=== PATIENT | male | born 1945 | race Caucasian/White ===

== ENCOUNTER 2017-09-30 11:50 | Outpatient (CLI) | payer BC ==
[2016-04-03 03:22] VITALS: O2SAT 93
== END 2017-09-30 11:51 | disposition home or self-care (01) ==
LOC: CONVCARE 11:50
PROVIDERS: ATTEND Orthopaedic Surgery
DX: M17.11 Unilateral primary osteoarthritis, right knee (principal)
CPT/HCPCS: 73564

== ENCOUNTER 2017-10-07 15:05 | Outpatient (CLI) | payer BC ==
[2016-04-03 03:22] VITALS: O2SAT 93
== END 2017-10-07 15:06 | disposition home or self-care (01) ==
LOC: CONVCARE 15:05
PROVIDERS: ATTEND Orthopaedic Surgery
DX: M16.11 Unilateral primary osteoarthritis, right hip (principal); M25.561 Pain in right knee; M25.571 Pain in right ankle and joints of right foot
CPT/HCPCS: 72120; 73502; 73610

== ENCOUNTER 2017-10-14 17:10 | Outpatient (CLI) | payer BC ==
[2016-04-03 03:22] VITALS: O2SAT 93
== END 2017-10-14 17:11 | disposition home or self-care (01) ==
LOC: CONVCARE 17:10
PROVIDERS: ATTEND Orthopaedic Surgery
DX: M16.11 Unilateral primary osteoarthritis, right hip (principal)

== ENCOUNTER 2017-10-17 11:25 | Emergency (ER) | payer BC ==
[2017-10-17 13:33] VITALS: BP 124/77; PULSE 88; RESP 20; TEMP 97.2; O2SAT 98
== END 2017-10-17 12:08 | disposition home or self-care (01) ==
LOC: ED 11:25
DX: J06.9 Acute upper respiratory infection, unspecified (principal)
CPT/HCPCS: 99282

== ENCOUNTER 2018-09-01 08:37 | Inpatient (IN) | payer MEDICARE, BC ==
[2018-09-01] MEDS ORDERED: OXYCODONE HYDROCHLORIDE 5 MG TAB ONE (14:06)
[2018-09-01] MEDS: OXYCODONE HYDROCHLORIDE 5 MG TAB PO PRN ×3 (14:32→21:46)
[2018-09-01] MEDS: ACETAMINOPHEN 500 MG 500 MG TAB PO PRN (14:47)
[2018-09-01] MEDS: WARFARIN SODIUM 6 MG TAB PO SCH (17:59)
[2018-09-01] MEDS ORDERED: ALBUTEROL HFA 60 PUFF/INHALER INH PRN (19:42)
[2018-09-01] MEDS ORDERED: MONTELUKAST SODIUM 5 MG CTB PO SCH (21:00)
[2018-09-01] MEDS ORDERED: [UNRECOGNIZED DRUG - OTHER] PO SCH (21:00)
[2018-09-01] MEDS ORDERED: SENNOSIDES PO SCH (21:00)
[2018-09-01] MEDS ORDERED: DOCUSATE SODIUM PO SCH (21:00)
[2018-09-01] MEDS ORDERED: MONTELUKAST SODIUM 10 MG TAB ONE (21:43)
[2018-09-01] MEDS: ENOXAPARIN 30 MG SOL SC SCH (21:46)
[2018-09-01] MEDS: DIAZEPAM 5 MG TAB PO PRN (21:46)
[2018-09-02] MEDS: OXYCODONE HYDROCHLORIDE 5 MG TAB PO PRN ×4 (02:58→21:59)
[2018-09-02 07:40] LABS: INR 1.15 (0.86-1.12)
[2018-09-02] MEDS: ENOXAPARIN 30 MG SOL SC SCH ×2 (07:51→22:00)
[2018-09-02] MEDS: DOCUSATE SODIUM 100 MG SGL PO SCH ×2 (08:46→21:58)
[2018-09-02] MEDS: SENNOSIDES A AND B 8.6 MG TAB PO SCH ×2 (08:46→21:59)
[2018-09-02] MEDS: LISINOPRIL 20 MG TAB PO SCH (08:46)
[2018-09-02] MEDS: AMLODIPINE 5 MG TAB PO SCH (08:47)
[2018-09-02] MEDS: HYDROCHLOROTHIAZIDE 25 MG TAB PO SCH (08:47)
[2018-09-02] MEDS: WARFARIN SODIUM 6 MG TAB PO SCH (17:52)
[2018-09-02] MEDS: MONTELUKAST SODIUM 10 MG TAB PO SCH (21:59)
[2018-09-03] MEDS: OXYCODONE HYDROCHLORIDE 5 MG TAB PO PRN ×5 (02:32→20:46)
[2018-09-03] MEDS: DIAZEPAM 5 MG TAB PO PRN (04:32)
[2018-09-03 07:50] LABS: INR 1.18 (0.86-1.12)
[2018-09-03] MEDS: ENOXAPARIN 30 MG SOL SC SCH ×2 (07:51→19:47)
[2018-09-03] MEDS: DOCUSATE SODIUM 100 MG SGL PO SCH ×2 (08:29→20:46)
[2018-09-03] MEDS: LISINOPRIL 20 MG TAB PO SCH (08:29)
[2018-09-03] MEDS: HYDROCHLOROTHIAZIDE 25 MG TAB PO SCH (08:29)
[2018-09-03] MEDS: SENNOSIDES A AND B 8.6 MG TAB PO SCH ×2 (08:31→20:46)
[2018-09-03] MEDS: AMLODIPINE 5 MG TAB PO SCH (08:31)
[2018-09-03] MEDS: ACETAMINOPHEN 500 MG 500 MG TAB PO PRN ×2 (11:17→18:28)
[2018-09-03] MEDS ORDERED: WARFARIN SODIUM 5 MG TAB PO SCH (18:00)
[2018-09-03] MEDS: MONTELUKAST SODIUM 10 MG TAB PO SCH (20:46)
[2018-09-04] MEDS: OXYCODONE HYDROCHLORIDE 5 MG TAB PO PRN ×5 (00:38→20:52)
[2018-09-04] MEDS: ACETAMINOPHEN 500 MG 500 MG TAB PO PRN ×3 (03:21→18:43)
[2018-09-04 07:19] LABS: INR 1.36 (0.86-1.12)
[2018-09-04] MEDS: ENOXAPARIN 30 MG SOL SC SCH ×2 (07:47→20:42)
[2018-09-04] MEDS: DOCUSATE SODIUM 100 MG SGL PO SCH ×2 (08:29→20:42)
[2018-09-04] MEDS: HYDROCHLOROTHIAZIDE 25 MG TAB PO SCH (08:30)
[2018-09-04] MEDS: SENNOSIDES A AND B 8.6 MG TAB PO SCH ×2 (08:31→20:42)
[2018-09-04] MEDS: LISINOPRIL 20 MG TAB PO SCH (08:31)
[2018-09-04] MEDS: AMLODIPINE 5 MG TAB PO SCH (08:31)
[2018-09-04] MEDS ORDERED: WARFARIN SODIUM 5 MG TAB PO SCH (18:00)
[2018-09-04] MEDS: DIAZEPAM 5 MG TAB PO PRN (19:26)
[2018-09-04] MEDS: MONTELUKAST SODIUM 10 MG TAB PO SCH (20:42)
[2018-09-05] MEDS: OXYCODONE HYDROCHLORIDE 5 MG TAB PO PRN ×7 (00:08→20:43)
[2018-09-05 07:43] LABS: INR 1.81 (0.86-1.12)
[2018-09-05] MEDS: HYDROCHLOROTHIAZIDE 25 MG TAB PO SCH (09:23)
[2018-09-05] MEDS: AMLODIPINE 5 MG TAB PO SCH (09:24)
[2018-09-05] MEDS: SENNOSIDES A AND B 8.6 MG TAB PO SCH ×2 (09:24→20:44)
[2018-09-05] MEDS: LISINOPRIL 20 MG TAB PO SCH (09:24)
[2018-09-05] MEDS: DOCUSATE SODIUM 100 MG SGL PO SCH ×2 (09:28→20:44)
[2018-09-05] MEDS: ENOXAPARIN 30 MG SOL SC SCH ×2 (09:30→20:42)
[2018-09-05] MEDS: MAGNESIUM HYDROXIDE 30 ML SUS PO PRN (15:20)
[2018-09-05] MEDS: WARFARIN SODIUM 5 MG TAB PO SCH (17:56)
[2018-09-05] MEDS: MONTELUKAST SODIUM 10 MG TAB PO SCH (20:44)
[2018-09-06] MEDS: OXYCODONE HYDROCHLORIDE 5 MG TAB PO PRN ×6 (04:33→21:10)
[2018-09-06] MEDS: ENOXAPARIN 30 MG SOL SC SCH ×2 (08:24→19:53)
[2018-09-06] MEDS: DOCUSATE SODIUM 100 MG SGL PO SCH ×2 (08:27→20:14)
[2018-09-06] MEDS: AMLODIPINE 5 MG TAB PO SCH (08:28)
[2018-09-06] MEDS: SENNOSIDES A AND B 8.6 MG TAB PO SCH ×2 (08:28→20:15)
[2018-09-06] MEDS: LISINOPRIL 20 MG TAB PO SCH (08:28)
[2018-09-06] MEDS: HYDROCHLOROTHIAZIDE 25 MG TAB PO SCH (08:28)
[2018-09-06] MEDS: MAGNESIUM HYDROXIDE 30 ML SUS PO PRN (12:01)
[2018-09-06] MEDS: ACETAMINOPHEN 500 MG 500 MG TAB PO PRN ×2 (12:01→19:50)
[2018-09-06] MEDS: WARFARIN SODIUM 5 MG TAB PO SCH (17:50)
[2018-09-06] MEDS: MONTELUKAST SODIUM 10 MG TAB PO SCH (20:15)
[2018-09-07] MEDS: OXYCODONE HYDROCHLORIDE 5 MG TAB PO PRN ×6 (00:25→22:43)
[2018-09-07] MEDS: ENOXAPARIN 30 MG SOL SC SCH (07:29)
[2018-09-07 07:57] LABS: INR 2.77 (0.86-1.12)
[2018-09-07] MEDS: DOCUSATE SODIUM 100 MG SGL PO SCH ×2 (08:54→20:26)
[2018-09-07] MEDS: HYDROCHLOROTHIAZIDE 25 MG TAB PO SCH (08:54)
[2018-09-07] MEDS: AMLODIPINE 5 MG TAB PO SCH (08:55)
[2018-09-07] MEDS: LISINOPRIL 20 MG TAB PO SCH (08:56)
[2018-09-07] MEDS: SENNOSIDES A AND B 8.6 MG TAB PO SCH ×2 (08:56→20:26)
[2018-09-07] MEDS: ACETAMINOPHEN 500 MG 500 MG TAB PO PRN (15:39)
[2018-09-07] MEDS ORDERED: WARFARIN SODIUM 5 MG TAB PO ONE (18:00)
[2018-09-07] MEDS: MONTELUKAST SODIUM 10 MG TAB PO SCH (20:26)
[2018-09-07] MEDS: AFRIN NAS SCH (20:27)
[2018-09-08] MEDS: OXYCODONE HYDROCHLORIDE 5 MG TAB PO PRN ×5 (02:28→20:25)
[2018-09-08 07:32] LABS: INR 2.72 (0.86-1.12)
[2018-09-08] MEDS: LISINOPRIL 20 MG TAB PO SCH (09:28)
[2018-09-08] MEDS: DOCUSATE SODIUM 100 MG SGL PO SCH ×2 (09:28→20:25)
[2018-09-08] MEDS: AMLODIPINE 5 MG TAB PO SCH (09:28)
[2018-09-08] MEDS: SENNOSIDES A AND B 8.6 MG TAB PO SCH ×2 (09:28→20:25)
[2018-09-08] MEDS: HYDROCHLOROTHIAZIDE 25 MG TAB PO SCH (09:29)
[2018-09-08] MEDS ORDERED: WARFARIN SODIUM 2.5 MG TAB PO SCH (18:00)
[2018-09-08] MEDS: AFRIN NAS SCH (20:25)
[2018-09-08] MEDS: MONTELUKAST SODIUM 10 MG TAB PO SCH (20:26)
[2018-09-09] MEDS: OXYCODONE HYDROCHLORIDE 5 MG TAB PO PRN ×5 (01:58→19:52)
[2018-09-09 07:56] LABS: INR 2.18 (0.86-1.12)
[2018-09-09] MEDS: SENNOSIDES A AND B 8.6 MG TAB PO SCH ×2 (09:25→20:01)
[2018-09-09] MEDS: AMLODIPINE 5 MG TAB PO SCH (09:26)
[2018-09-09] MEDS: LISINOPRIL 20 MG TAB PO SCH (09:26)
[2018-09-09] MEDS: HYDROCHLOROTHIAZIDE 25 MG TAB PO SCH (09:26)
[2018-09-09] MEDS: DOCUSATE SODIUM 100 MG SGL PO SCH ×2 (09:26→20:00)
[2018-09-09] MEDS: WARFARIN SODIUM 5 MG TAB PO SCH (17:47)
[2018-09-09] MEDS: ACETAMINOPHEN 500 MG 500 MG TAB PO PRN (19:52)
[2018-09-09] MEDS: MONTELUKAST SODIUM 10 MG TAB PO SCH (20:00)
[2018-09-09] MEDS: AFRIN NAS SCH (20:00)
[2018-09-10] MEDS: OXYCODONE HYDROCHLORIDE 5 MG TAB PO PRN ×4 (04:30→20:04)
[2018-09-10] MEDS: DOCUSATE SODIUM 100 MG SGL PO SCH ×2 (08:28→20:04)
[2018-09-10] MEDS: HYDROCHLOROTHIAZIDE 25 MG TAB PO SCH (08:28)
[2018-09-10] MEDS: AMLODIPINE 5 MG TAB PO SCH (08:29)
[2018-09-10] MEDS: SENNOSIDES A AND B 8.6 MG TAB PO SCH ×2 (08:30→20:05)
[2018-09-10] MEDS: LISINOPRIL 20 MG TAB PO SCH (08:31)
[2018-09-10] MEDS: ACETAMINOPHEN 500 MG 500 MG TAB PO PRN (12:57)
[2018-09-10] MEDS: WARFARIN SODIUM 5 MG TAB PO SCH (17:39)
[2018-09-10] MEDS: AFRIN NAS SCH (20:05)
[2018-09-10] MEDS: MONTELUKAST SODIUM 10 MG TAB PO SCH (20:05)
[2018-09-11] MEDS: ACETAMINOPHEN 500 MG 500 MG TAB PO PRN (04:19)
[2018-09-11 07:43] VITALS: PULSE 76; O2SAT 94
[2018-09-11] MEDS: HYDROCHLOROTHIAZIDE 25 MG TAB PO SCH (08:21)
[2018-09-11] MEDS: DOCUSATE SODIUM 100 MG SGL PO SCH ×2 (08:21→20:40)
[2018-09-11] MEDS: LISINOPRIL 20 MG TAB PO SCH (08:22)
[2018-09-11] MEDS: SENNOSIDES A AND B 8.6 MG TAB PO SCH ×2 (08:22→20:40)
[2018-09-11] MEDS: AMLODIPINE 5 MG TAB PO SCH (08:22)
[2018-09-11] MEDS: OXYCODONE HYDROCHLORIDE 5 MG TAB PO PRN ×4 (08:42→22:52)
[2018-09-11] MEDS: WARFARIN SODIUM 5 MG TAB PO SCH (18:00)
[2018-09-11] MEDS: AFRIN NAS SCH (20:39)
[2018-09-11] MEDS: MONTELUKAST SODIUM 10 MG TAB PO SCH (20:40)
[2018-09-11] MEDS: ALUMINUM/MAGNESIUM 30 ML SUS PO PRN (22:46)
[2018-09-12] MEDS: ALUMINUM/MAGNESIUM 30 ML SUS PO PRN (06:21)
[2018-09-12] MEDS: OXYCODONE HYDROCHLORIDE 5 MG TAB PO PRN ×2 (06:21→12:34)
[2018-09-12 07:39] VITALS: BP 111/73; RESP 16; TEMP 98.1
[2018-09-12 07:48] LABS: INR 1.9 (0.86-1.12)
[2018-09-12] MEDS: SENNOSIDES A AND B 8.6 MG TAB PO SCH (08:53)
[2018-09-12] MEDS: DOCUSATE SODIUM 100 MG SGL PO SCH (08:53)
[2018-09-12] MEDS: HYDROCHLOROTHIAZIDE 25 MG TAB PO SCH (08:53)
[2018-09-12] MEDS: AMLODIPINE 5 MG TAB PO SCH (08:54)
[2018-09-12] MEDS: LISINOPRIL 20 MG TAB PO SCH (08:54)
[2018-09-12] MEDS ORDERED: PNEUMOCOCCAL VACCINE 0.5 ML SOL IM ONE (14:33)
== END 2018-09-12 15:55 | disposition home or self-care (01) | DRG 566 ==
LOC: ACUTE CARE 11:44
PROVIDERS: ADMIT Family Medicine; ATTEND Family Medicine
PROC: F02Z2ZZ Feeding/Eating Assessment (ICD-10-PCS; principal; 2018-09-01)
PROC: F02Z0ZZ Bathing/Showering Assessment (ICD-10-PCS; 2018-09-01)
PROC: F01K0FZ Muscle Performance Assessment of Musculoskeletal System - Upper Back / Upper Extremity using Assistive, Adaptive, Supportive or Protective Equipment (ICD-10-PCS; 2018-09-01)
PROC: F01L0FZ Muscle Performance Assessment of Musculoskeletal System - Lower Back / Lower Extremity using Assistive, Adaptive, Supportive or Protective Equipment (ICD-10-PCS; 2018-09-01)
DX: Z96.641 Presence of right artificial hip joint (principal); I48.91 Unspecified atrial fibrillation; Z79.01 Long term (current) use of anticoagulants
CPT/HCPCS: 36415; 85610; 90732; A4450; A9270-GY; G0008; J1650

== ENCOUNTER 2018-10-13 15:20 | Outpatient (CLI) | payer MEDICARE, BC ==
[2018-09-11 07:43] VITALS: O2SAT 94
== END 2018-10-13 15:21 | disposition home or self-care (01) | DRG 951 ==
LOC: CONVCARE 15:20
PROVIDERS: ATTEND Orthopaedic Surgery
DX: Z98.890 Other specified postprocedural states (principal)
CPT/HCPCS: 73501; 73564; 84550

== ENCOUNTER 2019-06-06 13:18 | Day surgery (SDC) | payer BC ==
[2019-06-06] MEDS ORDERED: BUPIVACAINE HCL 0.25% MPF 30 ML SOL INFIL ONE (13:47)
[2019-06-06] MEDS ORDERED: TRIAMCINOLONE ACETONIDE 40 MG/ML SUS ONE (13:47)
[2019-06-06 14:13] VITALS: BP 143/82; PULSE 89; RESP 20; TEMP 97.4; O2SAT 94
== END 2019-06-06 14:34 | disposition home or self-care (01) ==
LOC: SURG 13:18
PROVIDERS: ATTEND Nurse Anesthetist, Certified Registered
DX: M12.9 Arthropathy, unspecified (principal)
CPT/HCPCS: J3300